=== PATIENT | male | born 2000 | race Caucasian/White ===

== ENCOUNTER 2023-01-28 10:53 | Inpatient (IN) | payer OTHER, SELFPAY ==
--- OUTSIDE RECORDS SUMMARY | 2023-01-28 10:56 | XMS_ITS | Continuity of Care Document ---
Author Name Unknown Organization [facility] Address [address] [place] [address]- Care Team Providers Care Customer Service Representative Teacher Name Role Phone Asher MATOS, Aleyda Wynn Primary Care Physician Encounter [facility] Date(s): 08/02/22 - 09/01/[address] [address]- Attending Physician: AdmHanna meehan Admitting Physician: Admtr, Ar8 Referring Physician: Admtr, Ar8 Allergies, Adverse Reactions, Alerts Substance Reaction Severity Status Latex Active Nuts Active Peanuts Active Immunizations Given and Recorded Vaccine Date Status Refusal Reason tetanus-diphtheria toxoids (Td) 08/02/22 Given Varicella Virus Vaccine 05/03/20 Recorded Varicella Virus Vaccine 02/26/10 Recorded Varicella Virus Vaccine 04/15/01 Recorded influenza virus vaccine, inactivated 04/26/20 Dario rded influenza virus vaccine, inactivated 03/17/14 Dario rded influenza virus vaccine, inactivated 04/19/13 Dario rded influenza virus vaccine, inactivated 02/28/12 Dario rded influenza virus vaccine, inactivated 02/27/11 Dario rded influenza virus vaccine, inactivated 02/26/10 Dario rded Meningococcal Conjugate Vaccine 03/11/16 Recorded Meningococcal Conjugate Vaccine 02/27/11 Recorded Human Papillomavirus Vaccine 03/11/16 Recorded Human Papillomavirus Vaccine 03/17/14 Recorded Human Papillomavirus Vaccine 04/19/13 Recorded tetanus/diphtheria/pertussis, acel(Tdap) 02/27/11 Recorded Poliovirus Vaccine, Inactivated 01/11/05 Recorded Poliovirus Vaccine, Inactivated 04/30/00 Recorded Poliovirus Vaccine, Inactivated 99 Recorded Poliovirus Vaccine, Inactivated 99 Recorded diphtheria/tetanus/pertussis, acel(DTaP) 01/11/05 Recorded diphtheria/tetanus/pertussis, acel(DTaP) 11/20/00 Recorded diphtheria/tetanus/pertussis, acel(DTaP) 99 Recorded diphtheria/tetanus/pertussis, acel(DTaP) 99 Recorded diphtheria/tetanus/pertussis, acel(DTaP) 99 Recorded Measles/Mumps/Rubella Virus Vaccine 08/09/03 Recor ded Measles/Mumps/Rubella Virus Vaccine 04/30/00 Recor ded hepatitis B pediatric vaccine 04/30/00 Recorded hepatitis B pediatric vaccine 99 Recorded hepatitis B pediatric vaccine 99 Recorded Medications Epipen Auto Injector = 0.3 mg, Intramuscular, Once, 0 Refills, Maintenance, 09/08/15 16:17:15 Start Date: 09/08/15 Status: Ordered hydrocortisone 1% topical cream 1 application, Topically, Daily, # 60 Gm, 0 Refills, Maintenance, 11/06/21 15:50:00 EDT, Cream, [id number], Partial fill upon patient request if the prescription is for a schedule II opioid drug., 1 application Topically Daily, 178, cm, ... Start Date: 11/06/21 Status: Ordered Zofran 4 mg oral tablet 1 tablet = 4 mg, By Mouth, Every 6 hours, PRN Nausea & Vomiting, # 12 tablet, 0 Refills, Maintenance, 11/06/21 15:39:00 EDT, Tablet, [id number], Partial fill upon patient request if the prescription is for a schedule II opioid drug., 178, cm,... Start Date: 11/06/21 Status: Ordered Social History Social History Type Response Smoking Status Never (less than 100 in lifetime); Interested in cessation: No; Patient wants NRT during admission No; Tobacco user in household: No entered on: 08/02/22 Sex Patient Care team information Care Team Personnel Name: Felicity Briones RN Position: [facility] ED RN W/OE and Tasks Member Role: Primary Care Nurse Name: Aleyda Sterling MD Position: [facility] Resident Member Role: PCP Address: Address: [address] [place] [address]- Care Team Related Persons Name: SALONI CADENA Address: home [address] [place] [id number] Name: KATHERINE ROSE Address: [address] [place] [address]
--- OUTSIDE RECORDS SUMMARY | 2023-01-28 10:56 | XMS_ITS | Continuity of Care Document ---
Author Name Unknown Organization [facility] Address [address] [place] [address]- Care Team Providers Care Food Clerk Name Role Phone Aleyda Sterling MD Primary Care Physician Encounter [facility] [id number] Date(s): 04/03/22 - 05/18/[address] [address]- Attending Physician: Not on Staff, Attending MD Allergies, Adverse Reactions, Alerts Substance Reaction Severity Status Latex Active Nuts Active Peanuts Active Medications Epipen Auto Injector = 0.3 mg, [...] 178, cm,... Start Date: 11/06/21 Status: Ordered Patient Care team information Care Team Personnel Name: Felicity Briones RN Position: [facility] ED RN W/OE and Tasks Member Role: Primary Care Nurse Name: Aleyda Sterling MD Position: S Resident Member Role: PCP Address: Address: [address] [place] [address] [place] [address]- Care Team Related Persons Name: SALONI CADENA Address: home [address] [place] [address] Name: KATHERINE ROSE Address: [address] [place] [address]
--- OUTSIDE RECORDS SUMMARY | 2023-01-28 10:56 | XMS_ITS | Continuity of Care Document ---
Author Name Unknown Organization [facility] Address [address] [place] [id number]- Care Team Providers Care Doll Wig Maker Name Role Phone Duy Abbasi MD, Diego Gonzales Primary Care Physicia n Encounter [facility] ACCT R [id number] Date(s): 11/03/19 - 11/03/[address] [address]- [facility] Discharge Disposition: A-D/C Home Attending Physician: Edi MATOS, Neelam Chau Admitting Physician: Edi MATOS, Neelam Chau Referring Physician: Not on Staff, Referring MD Allergies, Adverse Reactions, Alerts Substance Reaction Severity Status Latex Active Nuts Active Peanuts Active Medications Epipen Auto Injector = 0.3 mg, Intramuscular, Once, 0 Refills, Maintenance, 09/08/15 16:17:15 Start Date: 09/08/15 Status: Ordered Flomax 0.4 mg oral capsule 0.4 mg, 1, capsule, By Mouth, Daily, # 14 capsule, Refills 0, Tot. Refills 0, Maintenance, 11/02/2018:04:00 EDT, Route to Pharmacy Electronically, [facility] #[id number], 178, cm, 11/03/19 16:00:00 EDT,Height, 70.5, kg, 11/03/19 16:00:00 EDT, Dry Weight Start Date: 11/03/19 Stop Date: 11/17/19 Status: Ordered ibuprofen 600 mg oral tablet 600 mg, 1, tablet, By Mouth, 3 times a day, for 7 days, with food or milk not to exceed 3200 mg/day, # 21 tablet, Refills 0, Tot. Refills 0, Acute 11/10/19 19:05:00 EDT, 11/03/19 19:05:00 EDT, Route to Pharmacy Electronically, [facility]/pharm[facility] #[id number], 178... Start Date: 11/03/19 Stop Date: 11/10/19 Status: Ordered Zofran 4 mg oral tablet 1 tablet = 4 mg, By Mouth, Every 8 hours, PRN Nausea & Vomiting, # 15 tablet, 0 Refills, Maintenance, 11/03/19 19:06:00 EDT, Tablet, [facility]/pharm[facility] #[id number], 178, cm, 11/03/19 16:00:00 EDT, Height, 70.5, kg, 11/03/19 16:00:00 EDT, Dry Weight Start Date: 11/03/19 Stop Date: 11/08/19 Status: Ordered Vital Signs Most recent to oldest [Reference Range]: 1 2 3 Height 178 cm (11/03/19 7:28 PM) 178 cm (11/03/19 4:00 PM) 178 cm (11/03/19 11:58 AM) Oxygen Saturation [94-100 %] 99 % (11/03/19 7:28 PM) 99 % (11/03/19 4:00 PM) 100 % (11/03/19 11:50 AM) Pulse Rate [55-90 bpm] 51 bpm *L* (11/03/19 7:28 PM) 67 bpm (11/03/19 4:00 PM) 50 bpm *L* (11/03/19 11:50 AM) Blood Pressure [90-138/55-84 mm Hg] 109/55mm Hg (11/03/19 7:28 PM) 125/65mm Hg (11/03/19 4:00 PM) 120/70mm Hg (11/03/19 11:50 AM) Respiratory Rate [16-30 br/min] 18 br/min (11/03/19 7:28 PM) 16 br/min (11/03/19 4:00 PM) 20 br/min (11/03/19 1:59 PM) Temperature [96.8-100.4 DegF] 98.1 DegF (11/03/19 4:00 PM) 98.6 DegF (11/03/19 11:50 AM) Mode of Delivery (Oxygen) Room air (11/03/19 7:28 PM) Room air (11/03/19 4:00 PM) Room air (11/03/19 11:50 AM) Blood pressure sites Arm, left (11/03/19 7:28 PM) Arm, left (11/03/19 4:00 PM) Temperature Route Oral (11/03/19 4:00 PM) Oral (11/03/19 11:50 AM) Dry Weight 70.5 kg (11/03/19 7:28 PM) 70.5 kg (11/03/19 4:00 PM) 70.5 kg (11/03/19 11:58 AM)
--- OUTSIDE RECORDS SUMMARY | 2023-01-28 10:56 | XMS_ITS | Continuity of Care Document ---
Author Name Unknown Organization [facility] Address [address] [place] [address]- Care Team Providers Care Mattress Stuffer Name Role Phone Asher MATOS, Aleyda Wynn Primary Care Physician Encounter [facility] Date(s): 11/06/21 - 12/06/[address] [address]- Attending Physician: Admtr, Ar8 Admitting Physician: Admtr, Ar8 Referring Physician: Admtr, [...]
--- OUTSIDE RECORDS SUMMARY | 2023-01-28 10:56 | XMS_ITS | Continuity of Care Document ---
Author Name Unknown Organization [facility] Address [address] [place] [address]- Care Team Providers Care Entry Level Software Engineer Name Role Phone Aleyda Sterling MD Primary Care Physician [phone] Encounter [facility] Date(s): 07/16/22 - 09/11/[address] [address]- Attending Physician: Not on Staff, Attending MD Referring Physician: Aleyda Sterling MD Allergies, Adverse Reactions, Alerts Substance Reaction [...] Team Personnel Name: Felicity Briones RN Position: [facility] ED RN W/OE and Tasks Member Role: Primary Care Nurse Name: Aleyda Sterling MD Position: [facility] Resident Member Role: PCP Address: Address: [address] [place] [address]- Care Team Related Persons Name: TAMMISALONI Address: home [address] [place] [address] Name: KATHERINE ROSE Address: [address] [place] [address]
--- OUTSIDE RECORDS SUMMARY | 2023-01-28 10:56 | XMS_ITS | Continuity of Care Document ---
Author Name Unknown Organization [facility] Address [address] [place] [address]- Care Team Providers Care Saw Boss Name Role Phone Aleyda Sterling MD Primary Care Physician [place] [facility] [id number] Date(s): 04/18/22 - 05/18/[address] [address]- Attending Physician: Admtr, Ar8 Admitting Physician: Admtr, [...] drug., 1 application Topically Daily, 178, cm, 11/06/... Start Date: 11/06/21 Status: Ordered Zofran 4 [...] Team Personnel Name: Felicity Briones RN Position: S ED RN W/OE and Tasks Member Role: Primary Care Nurse Name: Aleyda Sterling MD Position: S Resident Member Role: PCP Address: Address: [address] [place] [address]- Care Team Related Persons Name: SALONI CADENA Address: home [address] [place] [address] Name: KATHERINE ROSE Address: [address] [place] [address]
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
[2023-01-28 20:12] VITALS: BP 135/78; PULSE 60; RESP 16; TEMP 36.3; O2SAT 97
--- NOTE | 2023-01-29 04:25 | PC.NURSE ---
At 0400 patient resting comfortably. Nurse did not notice any sweating or fidgeting from patient. RR-14. Nurse did not wake patient for full CIWA assessment as patient had not scored about 2 in the previous assessments.
--- NOTE | 2023-01-29 06:30 | PC.NURSE ---
at 0600, Stephen appeared to be resting. No signs of discomfort, no fidgeting in bed. No visible signs of sweating noted. RR-14. Patient was not awoken for full assessment.
[2023-01-29 07:42] LABS: Syphilis Screen Nonreactive (Nonreactive)
[2023-01-29 08:15] LABS: HIV AB/AG Nonreactive (Nonreactive); HIV Num 1 0.07 S/CO (0.00-0.99)
[2023-01-29] MEDS: Thiamine HCL 100 MG TABLET 50 MG PO (08:48)
[2023-01-29] MEDS: Folic Acid 1 MG TABLET PO (08:49)
[2023-01-29] MEDS: Multivitamin TABLET 1 TAB PO (08:49)
[2023-01-29 08:50] VITALS: BP 112/73; PULSE 79; RESP 16; TEMP 36.4; O2SAT 98
--- NOTE | 2023-01-29 09:07 | HO.PSYCHPN ---
Subjective Subjective Date of Service: 01/29/23 Reason For Visit: SI Subjective Notes: Conditional Voluntary Interim History: Reviewed in team and . Patient reports feeling okay today. Patient reports sleeping well last night. Pt denies suicidal ideation at this time. Pt stated, when the suicidal thoughts hits me, it hits me hard but when it goes away I'm completely fine. It usually comes when I'm alone. I get stuck in my thoughts . Pt reports he is able to talk with a therapist about these issues. Medication Compliance: Yes Side effects from medications: No Attending Groups: Yes Review of Systems Constitutional: Reports as per HPI Eyes: Reports as per HPI Reports as per HPI Cardiovascular: Reports as per HPI Respiratory: Reports as per HPI Gastrointestinal: Reports as per HPI Genitourinary: Reports as per HPI Musculoskeletal: Reports as per HPI Skin/Breast: Reports as per HPI Reports as per HPI Psychiatric: Reports as per HPI Endocrine: Reports as per HPI Hematologic/Lymphatic: Reports as per HPI Allergic/Immunologic: Reports as per HPI Mental Status Exam Mental Status Exam Narrative: Pt is alert and oriented; behavior is cooperative, friendly and calm; dressed in casual attire; mood is described as okay ; eye contact appropriate; Speech is normal rate, volume and prosody and not pressured; no psychomotor agitation/retardation present; thought process is organized and goal directed; Thought content is on tx; otherwise pertinent to relevant topics and without any delusional content, paranoid ideations or grandiosity; denies SI/HI. There is no evidence of perceptual disturbance. Patients insight and judgment are poor but improving. Diagnostics Vital Signs (24Hr): Vital Signs - 24 hr 01/28/23 20:12 01/29/23 08:50 Temperature 97.3 F 97.5 F Pulse Rate 60 79 Respiratory Rate 16 16 Blood Pressure 135/78 112/73 Pulse Oximetry 97 98 Oxygen Delivery Method Room Air Room Air Labs 01/29/23 08:32 Labs: Laboratory Results - last 48 hr 01/28/23 01/28/23 20:00 20:00 T.pallidum Ab (EIA) Nonreactive HIV 1&2 Ab/P24 Ag 4thGn Nonreactive Medications Medications Current Medications Acetaminophen (Acetaminophen 325 Mg Tablet) 650 mg PO Q6H PRN PRN Reason: Headache/Pain Mild Scale (1-3) Al Hydroxide/Mg Hydroxide (Magnesium Hydrox/Alum Hydrox 30 Ml Oral.Susp) 30 ml PO Q6H PRN PRN Reason: Heartburn/Nausea Fluoxetine HCl (Fluoxetine Hcl 20 Mg Capsule) 20 mg PO DAILY [facility] Folic Acid (Folic Acid 1 Mg Tablet) 1 mg PO DAILY [facility] Last Admin: 01/29/23 08:49 Dose: 1 mg Hydroxyzine HCl (Hydroxyzine Hcl 25 Mg Tablet) 25 mg PO Q6H PRN PRN Reason: Anxiety Lorazepam (Lorazepam 1 Mg Tablet) 1 mg PO Q2H PRN PRN Reason: CIWA 6-12 Lorazepam (Lorazepam 1 Mg Tablet) 2 mg PO Q2H PRN PRN Reason: CIWA 13 and above Magnesium Hydroxide (Milk Of Magnesia 30 Ml Oral.Susp) 30 ml PO DAILY PRN PRN Reason: Constipation Multivitamins/Vitamin C (Multivitamin Tablet) 1 tab PO DAILY [facility] Last Admin: 01/29/23 08:49 Dose: 1 tab Thiamine HCl (Thiamine Hcl 100 Mg Tablet) 50 mg PO DAILY [facility] Last Admin: 01/29/23 08:48 Dose: 50 mg Trazodone HCl (Trazodone Hcl 50 Mg Tablet) 50 mg PO BEDTIME MRX1 PRN PRN Reason: Insomnia Allergies Allergies Allergy/AdvReac Type Severity Reaction Status Date / Time peanut [PEANUT] Allergy Severe ANAPHYLAXIS Unverified 02/17/20 17:33 walnut [WALNUT] Allergy Severe ANAPHYLAXIS Unverified 02/17/20 17:33 latex [LATEX] Allergy Intermediate HIVES Unverified 02/17/20 17:33 Assessment & Plan Assessment & Plan (1) Routine medical exam: Status: Acute Code(s): Z00.00 - Encounter for general adult medical examination without abnormal findings (2) At risk for sexually transmitted disease due to unprotected sex: Status: Acute Code(s): Z91.89 - Other specified personal risk factors, not elsewhere classified Plan Patient is a 22 year old male who self presented to [facility] with suicidal ideation and plan to jump off a bridge secondary to increased depressive symptoms. MDD w/PTSD r/o Bipolar d/o Plan: CV 15 minute safety checks CIWA Start: Prozac 20mg PO daily (risks/benefits discussed with patient). Referral to therapist Referral to prescriber. Referral to substance use program? 01/29: Patient reports feeling okay today. Patient reports sleeping well last night. Pt denies suicidal ideation at this time. Pt stated, when the suicidal thoughts hits me, it hits me hard but when it goes away I'm completely fine. It usually comes when I'm alone. I get stuck in my thoughts . Pt reports he is able to talk with a therapist about these issues. Continue current tx plan. Patient educated on: diagnosis, medication risk/benefits and therapeutic strategies Informed Consent: understands Reason for continued inpatient stay Substantial Risk for: med/psych decompensation Time Spent With Patient Time: Total time managing care of this patient today _30___ minutes.
[2023-01-29] MEDS: FLUoxetine HCl 20 MG CAPSULE PO (09:12)
[2023-01-29 09:28] LABS: Alanine Aminotransferase 9 U/L (0-40); Albumin Level 4.5 g/dL (3.5-5.0); Alkaline Phosphatase 60 U/L (39-117); Anion Gap 11 (12-20); Aspartate Amino Transferase 16 U/L (5-37); Bilirubin Direct 0.3 mg/dL (0.0-0.5); Bilirubin Total 0.9 mg/dL (0.0-1.0); Blood Urea Nitrogen 8 mg/dL (9-16); Calcium 9.6 mg/dL (8.4-10.2); Carbon Dioxide 28 mmol/L (22-29); Chloride 104 mmol/L (96-108); Cholesterol 155 mg/dL (<200); Estimated Glomerular Filt Rate > 60; Glucose Fasting 92 mg/dL (60-99); HDL Cholesterol 44 mg/dL (>40); LDL Cholesterol Calculated 99 mg/dL (<100); Potassium 4.2 mmol/L (3.3-5.1); Sodium 139 mmol/L (135-145); Total Protein 7.2 g/dL (6.5-8.0); Triglycerides 63 mg/dL (<150)
[2023-01-29 09:46] LABS: HBc Num1 0.09 S/CO (0.00-0.79); HBsAGNum1 0.29 S/CO (0.00-0.99); Hepatitis B Core Antibody Nonreactive (Nonreactive); Hepatitis B Surface Antigen Negative (Negative); ~Hepatitis B Surface Antibody NONREACTIVE (Nonreactive); ~Hepatitis C Antibody Nonreactive (Nonreactive)
[2023-01-29] MEDS: hydrOXYzine HCL 25 MG TABLET PO ×2 (10:20→22:48)
[2023-01-29 14:43] LABS: CT PCR NOT DETECTED (Not Detect.); NG PCR NOT DETECTED (Not Detect.)
[2023-01-29 19:45] VITALS: BP 117/60; PULSE 78; RESP 18; TEMP 37; O2SAT 96
--- NOTE | 2023-01-30 00:20 | PC.NURSE ---
Sacha is currently sleeping. RR-14. No visible signs of sweating and no observed fidgeting in bed. Nurse did not wake patient for full CIWA assessment. Patient has not scored above a 2 in past 24 hours.
--- NOTE | 2023-01-30 04:20 | PC.NURSE ---
Sacha appears to be resting comfortably at 0400. No signs of distress noted. RR-14, Nurse did not wake patient for full CIWA assessment.
[2023-01-30 07:00] VITALS: BMI 21.8
[2023-01-30 08:53] VITALS: BP 128/75; PULSE 61; RESP 16; TEMP 36.7; O2SAT 99
[2023-01-30] MEDS: FLUoxetine HCl 20 MG CAPSULE PO (09:00)
[2023-01-30] MEDS: Multivitamin TABLET 1 TAB PO (09:01)
[2023-01-30] MEDS: Folic Acid 1 MG TABLET PO (09:01)
[2023-01-30] MEDS: Thiamine HCL 100 MG TABLET 50 MG PO (09:01)
--- NOTE | 2023-01-30 09:16 | HO.PSYCHPN ---
Subjective Subjective Date of Service: 01/30/23 Reason For Visit: SI Subjective Notes: Conditional Voluntary Interim History: Reviewed in team and . Patient reports feeling pretty good today. Patient stated, I'm not having any withdrawal symptoms. I'm going to stop drinking and start a hobby also find a job. I'm trying to be positive . Patient reports he is looking forward to staying with his mother. He plans on following up with outpatient providers. Pt denies SI/HI/VH/AH at this time. Medication Compliance: Yes Side effects from medications: No Attending Groups: Yes Review of Systems Review of Systems General: No fevers, malaise, unintentional weight loss HEENT: No blurred vision, diplopia. No sore throat, nasal congestion, rhinorrhea, sinus pain, ear pain Cardiovascular: No chest pain, palpitations, or leg edema Respiratory: No shortness of breath, wheezing, cough GI: No abdominal pain, nausea, vomiting, diarrhea, constipation, melena, hematochezia : No dysuria, hematuria, increased urinary frequency, decreased urinary output MSK: No myalgia, back pain Neuro: No headaches, weakness, paresthesias Skin: No rashes or lesions Constitutional: Reports as per HPI Eyes: Reports as per HPI Reports as per HPI Cardiovascular: Reports as per HPI Respiratory: Reports as per HPI Gastrointestinal: Reports as per HPI Genitourinary: Reports as per HPI Musculoskeletal: Reports as per HPI Skin/Breast: Reports as per HPI Reports as per HPI Psychiatric: Reports as per HPI Endocrine: Reports as per HPI Hematologic/Lymphatic: Reports as per HPI Allergic/Immunologic: Reports as per HPI Mental Status Exam Mental Status Exam Narrative: Pt is alert and oriented; behavior is cooperative, friendly and calm; dressed in casual attire; mood is described as good ; eye contact appropriate; Speech is normal rate, volume and prosody and not pressured; no psychomotor agitation/retardation present; thought process is organized and goal directed; Thought content is on tx; otherwise pertinent to relevant topics and without any delusional content, paranoid ideations or grandiosity; denies SI/HI. There is no evidence of perceptual disturbance. Patients insight and judgment are fair. Diagnostics Vital Signs (24Hr): Vital Signs - 24 hr 01/29/23 19:45 Temperature 98.6 F Pulse Rate 78 Respiratory Rate 18 Blood Pressure 117/60 Pulse Oximetry 96 Oxygen Delivery Method Room Air Labs 01/29/23 08:32 Labs: Laboratory Results - last 48 hr 01/28/23 01/28/23 01/28/23 17:05 20:00 20:00 Sodium Potassium Chloride Carbon Dioxide Anion Gap BUN Creatinine Estim Creat Clear Calc Estimated GFR Fasting Glucose Calcium Total Bilirubin Direct Bilirubin AST ALT Alkaline Phosphatase Total Protein Albumin Triglycerides Cholesterol LDL Cholesterol, Calc HDL Cholesterol T.pallidum Ab (EIA) Nonreactive Chlam trachomat DNA PCR NOT DETECTED Hep Bs Antigen Hep Bs Antibody Hep B Core Total Ab Hepatitis C Ab (EIA) HIV 1&2 Ab/P24 Ag 4thGn Nonreactive N.gonorrhoeae DNA (PCR) NOT DETECTED 01/29/23 01/29/23 08:32 08:32 Sodium 139 Potassium 4.2 Chloride 104 Carbon Dioxide 28 Anion Gap 11 L BUN 8 L Creatinine 0.85 Estim Creat Clear Calc TNP Estimated GFR > 60 Fasting Glucose 92 Calcium 9.6 Total Bilirubin 0.9 Direct Bilirubin 0.3 AST 16 ALT 9 Alkaline Phosphatase 60 Total Protein 7.2 Albumin 4.5 Triglycerides 63 Cholesterol 155 LDL Cholesterol, Calc 99 HDL Cholesterol 44 T.pallidum Ab (EIA) Chlam trachomat DNA PCR Hep Bs Antigen Negative Hep Bs Antibody NONREACTIVE Hep B Core Total Ab Nonreactive Hepatitis C Ab (EIA) Nonreactive HIV 1&2 Ab/P24 Ag 4thGn N.gonorrhoeae DNA (PCR) Medications Medications Current Medications Acetaminophen (Acetaminophen 325 Mg Tablet) 650 mg PO Q6H PRN PRN Reason: Headache/Pain Mild Scale (1-3) Al Hydroxide/Mg Hydroxide (Magnesium Hydrox/Alum Hydrox 30 Ml Oral.Susp) 30 ml PO Q6H PRN PRN Reason: Heartburn/Nausea Fluoxetine HCl (Fluoxetine Hcl 20 Mg Capsule) 20 mg PO DAILY [facility] Last Admin: 01/30/23 09:00 Dose: 20 mg Folic Acid (Folic Acid 1 Mg Tablet) 1 mg PO DAILY [facility] Last Admin: 01/30/23 09:01 Dose: 1 mg Hydroxyzine HCl (Hydroxyzine Hcl 25 Mg Tablet) 25 mg PO Q6H PRN PRN Reason: Anxiety Last Admin: 01/29/23 22:48 Dose: 25 mg Lorazepam (Lorazepam 1 Mg Tablet) 1 mg PO Q2H PRN PRN Reason: CIWA 6-12 Lorazepam (Lorazepam 1 Mg Tablet) 2 mg PO Q2H PRN PRN Reason: CIWA 13 and above Magnesium Hydroxide (Milk Of Magnesia 30 Ml Oral.Susp) 30 ml PO DAILY PRN PRN Reason: Constipation Multivitamins/Vitamin C (Multivitamin Tablet) 1 tab PO DAILY [facility] Last Admin: 01/30/23 09:01 Dose: 1 tab Thiamine HCl (Thiamine Hcl 100 Mg Tablet) 50 mg PO DAILY [facility] Last Admin: 01/30/23 09:01 Dose: 50 mg Trazodone HCl (Trazodone Hcl 50 Mg Tablet) 50 mg PO BEDTIME MRX1 PRN PRN Reason: Insomnia Allergies Allergies Allergy/AdvReac Type Severity Reaction Status Date / Time peanut [PEANUT] Allergy Severe ANAPHYLAXIS Unverified 02/17/20 17:33 walnut [WALNUT] Allergy Severe ANAPHYLAXIS Unverified 02/17/20 17:33 latex [LATEX] Allergy Intermediate HIVES Unverified 02/17/20 17:33 Assessment & Plan Assessment & Plan (1) MDD (major depressive disorder), recurrent episode, severe: Status: Acute Code(s): F33.2 - Major depressive disorder, recurrent severe without psychotic features (2) PTSD (post-traumatic stress disorder): Status: Acute Code(s): F43.10 - Post-traumatic stress disorder, unspecified (3) ETOH abuse: Status: Acute Code(s): F10.10 - Alcohol abuse, uncomplicated Plan Patient is a 22 year old male who self presented to [facility] with suicidal ideation and plan to jump off a bridge secondary to increased depressive symptoms. MDD w/PTSD r/o Bipolar d/o Plan: CV 15 minute safety checks CIWA Start: Prozac 20mg PO daily (risks/benefits discussed with patient). Referral to therapist Referral to prescriber. Referral to substance use program? 01/29: Patient reports feeling okay today. Patient reports sleeping well last night. Pt denies suicidal ideation at this time. Pt stated, when the suicidal thoughts hits me, it hits me hard but when it goes away I'm completely fine. It usually comes when I'm alone. I get stuck in my thoughts . Pt reports he is able to talk with a therapist about these issues. Continue current tx plan. 01/30: Patient reports feeling pretty good today. Patient stated, I'm not having any withdrawal symptoms. I'm going to stop drinking and start a hobby also find a job. I'm trying to be positive . Patient reports he is looking forward to staying with his mother. He plans on following up with outpatient providers. Pt denies SI/HI/VH/AH at this time. Plan for discharge home tomorrow. Patient educated on: diagnosis, medication risk/benefits, substance abuse and therapeutic strategies Informed Consent: understands Reason for continued inpatient stay Substantial Risk for: stable for discharge Time Spent With Patient Time: Total time managing care of this patient today _30___ minutes.
[2023-01-30] MEDS: cloNIDine HCL 0.1 MG TABLET PO (10:18)
[2023-01-30 20:40] VITALS: BP 120/68; PULSE 70; RESP 18; TEMP 36.8; O2SAT 98
[2023-01-31] MEDS: traZODone HCL 50 MG TABLET PO (02:03)
--- NOTE | 2023-01-31 08:57 | P.DS_ITS ---
DS: Providers Provider Date of Service: 01/31/23 Date of admission: 01/28/23 10:53 Date of discharge: 01/31/23 Primary care physician: Unknown Physician Admitting clinician: Juliet Ramirez Attending physician on admission: Anthony Daley Consults: 01/29/23 09:07 Consult to Hospitalist Routine Comment: Consulting Provider: Hospitalist Reason For Exam: outside admit Attending physician on discharge: Marvin Oreilly Discharging clinician: Juliet Ramirez DS: Diagnosis Discharge Diagnosis (1) MDD (major depressive disorder), recurrent episode, severe: Status: Acute (2) PTSD (post-traumatic stress disorder): Status: Acute (3) ETOH abuse: Status: Acute Mental Status Exam Mental Status Exam Narrative: Pt is alert and oriented; behavior is cooperative, friendly and calm; dressed in casual attire; mood is described as good ; eye contact appropriate; Speech is normal rate, volume and prosody and not pressured; no psychomotor agitation/retardation present; thought process is organized and goal directed; Thought content is on tx; otherwise pertinent to relevant topics and without any delusional content, paranoid ideations or grandiosity; denies SI/HI. There is no evidence of perceptual disturbance. Patients insight and judgment are fair. Data Data Completed and Pending Completed studies during hospitalization [Text1]: 01/28/23 01/28/23 01/28/23 17:05 20:00 20:00 Sodium Potassium Chloride Carbon Dioxide Anion Gap BUN Creatinine Estim Creat Clear Calc Estimated GFR Fasting Glucose Calcium Total Bilirubin Direct Bilirubin AST ALT Alkaline Phosphatase Total Protein Albumin Triglycerides Cholesterol LDL Cholesterol, Calc HDL Cholesterol T.pallidum Ab (EIA) Nonreactive Chlam trachomat DNA PCR NOT DETECTED Hep Bs Antigen Hep Bs Antibody Hep B Core Total Ab Hepatitis C Ab (EIA) HIV 1&2 Ab/P24 Ag 4thGn Nonreactive N.gonorrhoeae DNA (PCR) NOT DETECTED 01/29/23 01/29/23 08:32 08:32 Sodium 139 Potassium 4.2 Chloride 104 Carbon Dioxide 28 Anion Gap 11 L BUN 8 L Creatinine 0.85 Estim Creat Clear Calc TNP Estimated GFR > 60 Fasting Glucose 92 Calcium 9.6 Total Bilirubin 0.9 Direct Bilirubin 0.3 AST 16 ALT 9 Alkaline Phosphatase 60 Total Protein 7.2 Albumin 4.5 Triglycerides 63 Cholesterol 155 LDL Cholesterol, Calc 99 HDL Cholesterol 44 T.pallidum Ab (EIA) Chlam trachomat DNA PCR Hep Bs Antigen Negative Hep Bs Antibody NONREACTIVE Hep B Core Total Ab Nonreactive Hepatitis C Ab (EIA) Nonreactive HIV 1&2 Ab/P24 Ag 4thGn N.gonorrhoeae DNA (PCR) DS: Summary Hospital Course Hospital Course: Patient is a 22 year old male who self presented to [facility] with suicidal ideation and plan to jump off a bridge secondary to increased depressive symptoms. During admission assessment, patient presents calm and cooperative without rapid or pressured speech. Patient reports having more lows than usual lately . Pt stated, I feel like I can't do life right now. I can't keep a job or pay bills. I quit my last job because I got into a low mood and stopped showing up. I've always felt down . Patient reports he has suicidal thoughts even when sober from ETOH but it gets worse when I drink . Pt reports concerns of racing thoughts, impulsively and hypersexual behavior; he stated I had 9 sexual partners two weeks ago and then 6 last week, but I thought that was just being an adult. I got tested and don't have anything . Denies any outpatient providers. Pt reports he drinks 10-12 shots of hard liquor a day . UTOX positive for marijuana. Denies any other substance use. He reports sleeping well at night. He would like referrals to an outpatient therapist and prescriber. Pt is considering stopping his ETOH use. MDD w/PTSD r/o Bipolar d/o Patient was started on Prozac 20mg PO daily and Clonidine 0.1mg PO PRN daily for anxiety; risks/benefits discussed. Patient reports feeling okay today; reports sleeping well last night. Pt denies suicidal ideation at this time. Pt stated, when the suicidal thoughts hits me, it hits me hard but when it goes away I'm completely fine. It usually comes when I'm alone. I get stuck in my thoughts . Pt reports he is looking forward to talking with a therapist about these issues. Patient reports feeling pretty good today. Patient stated, I'm not having any withdrawal symptoms. I'm going to stop drinking and start a hobby also find a job. I'm trying to be positive . Patient reports he is looking forward to staying with his mother. He plans on following up with outpatient providers. Pt denies SI/HI/VH/AH at this time. Pt does not want any substance abuse referrals; he states he is considering attending AA meetings. Time spent discussing smoking cessation with patient: 3 to 10 minutes Status at Discharge Cognitive/behavioral status at discharge: Patient was interviewed prior to discharge and found to be fully oriented and without any SI or HI. Patient has insight and demonstrates good judgment in terms of wanting to pursue treatment. Patient is not in imminent risk of harm to self or others and has a safety plan that includes presenting to the closest ER or calling 911 if feeling unsafe. Patient has been observed closely by nursing and unit staff throughout admission; patient has not engaged in any behaviors that suggest dangerousness to self or others and has demonstrated appropriate behaviors and impulse control. Functional status at discharge: independent ambulation Overall status at discharge: patient is back to baseline Time Spent with Patient Time attestation: Total time managing care of this patient today _30___ minutes. Time spent: Less than 30 minutes Discharge Plan Discharge Anticipated Discharge Date/Time: 01/31/23 11:45 Patient Disposition: Home, Self-Care Discharge Diagnosis: MDD, PTSD, ETOH abuse Referrals: Hector Toscano (Therapy) [Other] - 02/04/23 1:00 pm (IN OFFICE APPOINTMENT -Please arrive fifteen minutes early to your appointment in order to fill out necessary paperwork. ) Abimbola España (Psychiatry) [Other] - 03/06/23 8:00 am (TELEHEALTH APPOINTMENT -Please check your email account for appointment information and verification. ) [facility] (Psychiatry) [Other] - 04/02/23 10:00 am (TELEHEALTH APPOINTMENT) Physician,Ivy J [Primary Care Provider] - 1 Week (PCP at [facility] notified and will follow up with patient for appointment date/time. ) Discharge Medications: New fluoxetine 20 mg Capsule 20 mg PO DAILY 30 Days Qty: 30 0RF clonidine HCl 0.1 mg Tablet 0.1 mg PO DAILY PRN (Reason: Anxiety) 30 Days Qty: 30 0RF Protocol: Hold for SBP< HOLD for SBP < : 90 Discharge Orders: Discharge Order (Routine); Ordered 01/31/23 Ordered By: Juliet Ramirez Diet: Regular diet Activity on Discharge: As tolerated Stand Alone Forms: Patient Portal Discharge page, Community Support Care Plan Goals: Maintain mood and safe behaviors Take medications as prescribed Continue to pursue sobriety Practice coping skills Continue with outpatient providers and reach out to them as needed Health Concerns: Mood stability and behaviors Sobriety Plan of Treatment: Follow up with your PCP, psychiatric provider and other outpatient providers regarding above concerns Take medications as prescribed Assessment: Patient was interviewed prior to discharge and found to be fully oriented and without any SI or HI. Patient has insight and demonstrates good judgment in terms of wanting to pursue treatment. Patient is not in imminent risk of harm to self or others and has a safety plan that includes presenting to the closest ER or calling 911 if feeling unsafe. Patient has been observed closely by nursing and unit staff throughout admission; patient has not engaged in any behaviors that suggest dangerousness to self or others and has demonstrated appropriate behaviors and impulse control.
[2023-01-31] MEDS: FLUoxetine HCl 20 MG CAPSULE PO (09:41)
[2023-01-31 09:42] VITALS: BP 125/57; PULSE 60; RESP 18; TEMP 36.4; O2SAT 98
[2023-01-31] MEDS: Naloxone HCl Nasal 4 MG SPRAY 8 MG NOSTRILALT (11:32)
== END 2023-01-31 11:38 | disposition home or self-care (01) | DRG 751 ==
PROVIDERS: Physician Assistant; Admitting Provider Psychiatry & Neurology Psychiatry; Responsible Provider Registered Nurse; Visit Provider Psychiatry & Neurology Psychiatry
DX: F33.2 Major depressive disorder, recurrent severe without psychotic features (principal); R45.851 Suicidal ideations; F43.10 Post-traumatic stress disorder, unspecified; F10.20 Alcohol dependence, uncomplicated; Z91.52 Personal history of nonsuicidal self-harm; Z72.51 High risk heterosexual behavior; Z91.040 Latex allergy status
CPT/HCPCS: 0353U; 36415; 80053; 80061; 80076; 86704; 86706; 86780; 86803; 87340; 87389

== ENCOUNTER → 2023-01-28 10:53 | Outpatient (BNV) | payer OTHER, SELFPAY | PROVIDERS: Admitting Provider Psychiatry & Neurology Psychiatry; Responsible Provider Registered Nurse; Visit Provider Physician Assistant | DX: F33.2 Major depressive disorder, recurrent severe without psychotic features (principal); F43.11 Post-traumatic stress disorder, acute; F10.10 Alcohol abuse, uncomplicated | CPT/HCPCS: 99222 ==

== ENCOUNTER → 2023-01-28 10:53 | Outpatient (BNV) | payer OTHER, SELFPAY | PROVIDERS: Admitting Provider Psychiatry & Neurology Psychiatry; Responsible Provider Registered Nurse; Visit Provider Psychiatry & Neurology Psychiatry | DX: F33.2 Major depressive disorder, recurrent severe without psychotic features (principal); F43.11 Post-traumatic stress disorder, acute; F10.10 Alcohol abuse, uncomplicated | CPT/HCPCS: 99231; 99233 ==

== ENCOUNTER → 2023-01-28 10:53 | Outpatient (BNV) | payer OTHER, SELFPAY | PROVIDERS: Admitting Provider Psychiatry & Neurology Psychiatry; Responsible Provider Registered Nurse; Visit Provider Psychiatry & Neurology Psychiatry | DX: F33.2 Major depressive disorder, recurrent severe without psychotic features (principal); F43.11 Post-traumatic stress disorder, acute; F10.10 Alcohol abuse, uncomplicated | CPT/HCPCS: 99231; 99232 ==